=== PATIENT | male | born 1950 | race Caucasian/White ===

== ENCOUNTER → 2019-10-12 08:36 | Outpatient (CLI) | payer BC, SELFPAY ==
--- NOTE | ~2019-10-12 | XR_ITS ---
EXAMINATION: XR knee LT 2V DATE: 10/12/2019 08:55 INDICATION: Unspecified osteoarthritis, unspecified site. TECHNIQUE: 2 views of left knee were obtained. COMPARISON: None. FINDINGS: Bone alignment is normal. No fracture. There is mild tricompartmental osteoarthritis. No kn ee joint effusion. IMPRESSION: 1. Mild left knee osteoarthritis. Reviewed, dictated and finalized at location A.
== END ==
PROVIDERS: PCP Internal Medicine; Visit Provider Internal Medicine
DX: M17.12 Unilateral primary osteoarthritis, left knee (principal)
CPT/HCPCS: 73560

== ENCOUNTER 2019-12-08 01:35 | Outpatient (CLI) | payer BC, SELFPAY ==
[2019-12-08 22:13] LABS: SARS-CoV-2 RNA PCR Negative
== END 2019-12-08 01:36 | disposition home or self-care (01) ==
LOC: ANHCOVIDDT 01:35
PROVIDERS: PCP Internal Medicine; Visit Provider Internal Medicine Gastroenterology
DX: Z01.812 Encounter for preprocedural laboratory examination (principal); Z20.828 Contact with and (suspected) exposure to other viral communicable diseases
CPT/HCPCS: 87635; C9803; U0003

== ENCOUNTER 2019-12-11 00:13 | Day surgery (SDC) | payer BC, SELFPAY ==
[2019-12-05 08:27] VITALS: BMI 28.0
--- NOTE | 2019-12-10 14:36 | WPDANESEPPF ---
Anes - Initial Pre Proc Eval Procedure: Operation Date: 12/11/19 08:30 Proposed Procedures p Screening Colonoscopy - Camilo Kern MD Date/Time: 12/10/19 14:36 Surgeon: Camilo Kern MD Pre Op Diagnosis: neoplasm Screening Patient Data Age: 69 Gender: M Height: 1.98 m Weight: 110 kg Allergies Allergy/AdvReac Type Severity Reaction Status Date / Time Penicillins Allergy Severe Swelling Verified 12/11/19 07:43 of Lip/Tongue/Throat Home Medications Medication Instructions Recorded Confirmed Type gemfibrozil 600 mg tablet 600 mg PO BID 03/30/19 12/05/19 History omeprazole 20 mg capsule,delayed 20 mg PO BID PRN 03/30/19 12/05/19 History release alfuzosin 10 mg tablet,extended 10 mg PO DAILY 04/02/19 12/05/19 History release 24 hr multivitamin 1 tablet PO DAILY 04/02/19 12/05/19 History metoprolol succinate 25 mg See Rx Instructions .ROUTE 08/14/19 12/05/19 Rx tablet,extended release 24 hr .COMPLEX #90 tablet gabapentin 300 mg capsule 300 mg PO DAILY #90 cap 10/25/19 12/05/19 Rx peg 3350-electrolytes 236 240 ml PO Q10M #4000 ml 10/26/19 Rx gram-22.74 gram-6.74 gram-5.86 gram solution levothyroxine 175 mcg tablet 175 mcg PO DAILY #180 tablet 10/31/19 12/05/19 Rx sertraline 50 mg tablet See Rx Instructions .ROUTE 11/19/19 12/05/19 Rx .COMPLEX #90 tablet cyanocobalamin (vitamin B-12) 1,000 mcg PO DAILY 12/05/19 12/05/19 History Patient hx anesthesia problems: none Family hx anesthesia problems: none PMFSH Past Medical History Medical History (Updated 12/10/19 @ 14:37 by David Jackson MD) Anxiety Benign prostatic hyperplasia without lower urinary tract symptoms Chronic low back pain Detached retina, right Essential (primary) hypertension History of kidney stones Hx of thyroid cancer Melanoma Mixed hyperlipidemia Osteoarthritis Postoperative hypothyroidism Family History Family History (Updated 10/04/13 @ 07:13 by DOCTOR UNKNOWN) Sibling Carcinoma of colon Mother Family history of congestive heart failure Social History Social History Smoking status: Never smoker Alcohol intake: never Substance use: never Substance use type: does not use Spiritual care concerns: No Anes - Eval Final PreProcedure Day of Procedure 12/10/19 14:36 Patient weight: obese Heart: regular rate and rhythm Lungs: clear to auscultation and normal air movement Airway: Mallampati scale class II Neurological: alert and oriented Last oral intake: >/= 8 hours ASA classification: III Emergent: no Anesthetic plan: proceed Anesthesia type and monitoring: general GIVS Informed Consent: The patient's anesthetic plan and its attendant risks and benefits were discussed with the patient/family/POA. Questions were solicited and answers provided to the satisfaction of the patient/family/POA.
[2019-12-11 07:45] VITALS: BP 144/77; PULSE 89; RESP 22; TEMP 37.1; O2SAT 98; BMI 27.8
[2019-12-11] MEDS: LACTATED RINGERS 1,000 ML 150 ML IV CONT (07:52)
--- NOTE | 2019-12-11 08:47 | PM.HPGS ---
History of Present Illness History of Present Illness Consent: Risks, benefits, and alternatives have been discussed and questions answered. Patient agrees to proceed with procedure. Chief complaint: neoplasm Screening Narrative: Micha Robles is a 69 year old male with colon polyps 2017 but also strong family history of colon cancer (sister, father and grandparent) Review of Systems Constitutional: Constitutional: Denies headache(s) and Denies weakness Eyes: Eyes: Denies blurry vision ENT: Reports Normal hearing present, Denies headache(s) and Denies neck pain Cardiovascular: Cardiovascular: Denies chest pain and Denies dyspnea Respiratory: Respiratory: Denies dyspnea Gastrointestinal: Gastrointestinal: Reports no additional gastrointestinal complaints Genitourinary: Genitourinary: Denies dysuria Musculoskeletal: Musculoskeletal: Denies neck pain Integumentary/Breasts: Skin/Breast: Denies dry skin Neurologic: Reports Normal hearing present, Denies headache(s) and Denies weakness Psychiatric: Psychiatric: Denies anxiety Endocrine: Endocrine: Denies change in body appearance Hematologic/Lymphatic: Hematologic/Lymphatic: Denies easy bleeding Allergic/Immunologic: Allergic/Immunologic: Denies urticaria PMFSH Past Medical History Medical History (Updated 12/10/19 @ 14:37 by David Jackson MD) Anxiety Benign prostatic hyperplasia without lower urinary tract symptoms Chronic low back pain Detached retina, right Essential (primary) hypertension History of kidney stones Hx of thyroid cancer Melanoma Mixed hyperlipidemia Osteoarthritis Postoperative hypothyroidism Family History Family History (Updated 10/04/13 @ 07:13 by DOCTOR UNKNOWN) Sibling Carcinoma of colon Mother Family history of congestive heart failure Social History Social History Smoking status: Never smoker Alcohol intake: never Substance use: never Substance use type: does not use Spiritual care concerns: No Meds Home Medications and Allergies Home Medications Medication Instructions Recorded Confirmed Type gemfibrozil 600 mg tablet 600 mg PO BID 03/30/19 12/05/19 History omeprazole 20 mg capsule,delayed 20 mg PO BID PRN 03/30/19 12/05/19 History release alfuzosin 10 mg tablet,extended 10 mg PO DAILY 04/02/19 12/05/19 History release 24 hr multivitamin 1 tablet PO DAILY 04/02/19 12/05/19 History metoprolol succinate 25 mg See Rx Instructions .ROUTE 08/14/19 12/05/19 Rx tablet,extended release 24 hr .COMPLEX #90 tablet gabapentin 300 mg capsule 300 mg PO DAILY #90 cap 10/25/19 12/05/19 Rx peg 3350-electrolytes 236 240 ml PO Q10M #4000 ml 10/26/19 Rx gram-22.74 gram-6.74 gram-5.86 gram solution levothyroxine 175 mcg tablet 175 mcg PO DAILY #180 tablet 10/31/19 12/05/19 Rx sertraline 50 mg tablet See Rx Instructions .ROUTE 11/19/19 12/05/19 Rx .COMPLEX #90 tablet cyanocobalamin (vitamin B-12) 1,000 mcg PO DAILY 12/05/19 12/05/19 History Allergies Allergy/AdvReac Type Severity Reaction Status Date / Time Penicillins Allergy Severe Swelling Verified 12/11/19 07:43 of Lip/Tongue/Throat Vital Signs Vital Signs - 24 hr 12/11/19 07:45 Temperature 98.7 F Pulse Rate 89 Respiratory Rate 22 H Blood Pressure 144/77 H Pulse Oximetry 98 Exam Const: General: comfortable and no acute distress HENMT: General nose exam: Normal nares present Eyes: General: appearance normal, both eyes and all related structures Neck: Neck: no JVD Resp: Auscultation: clear to auscultation bilaterally Cardio: Rate: regular rate Rhythm: regular rhythm GI: Inspection: non-distended GI Palp: Yes Soft to palpation Skin: General skin exam: normal color Neuro: General: gait normal Speech: normal speech Extrem: General: normal to inspection Psych: Mental Status: mental status grossly normal Assessment and Plan Assessment and plan (1) FHx: colon cancer: Code(s
[2019-12-11 09:13] VITALS: BP 114/75; PULSE 72; RESP 16; O2SAT 99
[2019-12-11 09:23] VITALS: BP 116/76; PULSE 76; RESP 20; O2SAT 99
[2019-12-11 09:33] VITALS: BP 127/82; RESP 21; O2SAT 99
== END 2019-12-11 09:53 | disposition home or self-care (01) ==
PROVIDERS: PCP Internal Medicine; Visit Provider Internal Medicine Gastroenterology
PROC: 0DJD8ZZ Inspection of Lower Intestinal Tract, Via Natural or Artificial Opening Endoscopic (ICD-10-PCS; CPT 45378; principal; 2019-12-11 08:30)
DX: Z12.11 Encounter for screening for malignant neoplasm of colon (principal); D12.0 Benign neoplasm of cecum; K63.5 Polyp of colon; K57.30 Diverticulosis of large intestine without perforation or abscess without bleeding; Z80.0 Family history of malignant neoplasm of digestive organs; E78.2 Mixed hyperlipidemia; E89.0 Postprocedural hypothyroidism; N40.0 Benign prostatic hyperplasia without lower urinary tract symptoms; F41.9 Anxiety disorder, unspecified; Z85.850 Personal history of malignant neoplasm of thyroid; E66.9 Obesity, unspecified
CPT/HCPCS: 45385; 45380; 88305; J2704; J7120

== ENCOUNTER → 2020-04-07 09:32 | Outpatient (REF) | payer MEDICARE, BC, SELFPAY | LOC: ANHLAB 09:32 | PROVIDERS: PCP Internal Medicine; Visit Provider Nurse Practitioner | DX: C44.712 Basal cell carcinoma of skin of right lower limb, including hip (principal) | CPT/HCPCS: 88305; 88331 ==

== ENCOUNTER → 2020-04-10 12:01 | Outpatient (CLI) | payer MEDICARE, BC, SELFPAY ==
[2020-04-11 13:21] LABS: SARS-CoV-2 RNA PCR Positive
== END ==
PROVIDERS: PCP Internal Medicine; Visit Provider Internal Medicine
DX: U07.1 COVID-19 (principal)
CPT/HCPCS: C9803; U0003; U0005

== ENCOUNTER 2020-05-16 11:40 | Outpatient (CLI) | payer MEDICARE, BC, SELFPAY ==
--- NOTE | 2020-05-16 12:06 | ECG_ITS ---
Measurements Intervals [place] Rate: 78 P: 54 VA: 156 QRS: -7 QRSD: 88 T: 18 QT: 377 QTc: 431 Interpretive Statements SINUS RHYTHM NORMAL ECG Electronically Signed On 05-16-2020 12:51:56 CDT by Otis Mccann D.O.
== END 2020-05-16 11:41 | disposition home or self-care (01) ==
PROVIDERS: PCP Internal Medicine; Visit Provider Internal Medicine
DX: I10 Essential (primary) hypertension (principal)
CPT/HCPCS: 93005

== ENCOUNTER → 2020-08-29 11:26 | Outpatient (CLI) | payer MEDICARE, SELFPAY ==
--- NOTE | ~2020-08-29 | CT_ITS ---
EXAMINATION: CT abdomen pelvis wo con DATE: 08/29/2020 11:45 INDICATION: Gross hematuria, right flank pain TECHNIQUE: Computed tomography (CT) of the abdomen and pelvis was performed without intravenous contr ast. The dose-length product (DLP) was 849.67 mGy-cm. Automated exposure control and iterative recons truction technique were employed. COMPARISON: 03/10/2018 FINDINGS: Minimal dependent atelectasis is present in the lung bases. The heart size is normal. Punct ate calcifications in otherwise normal appearing liver and spleen likely represent healed granulomato us disease. The pancreas, gallbladder, and right adrenal gland are normal. There is a 1.6 cm adenoma of the left adrenal gland. Cysts of the kidneys measure up to 10.0 cm on the left. No stones are iden tified in the kidneys, ureters, or bladder. There is no hydronephrosis or hydroureter. There is marke d enlargement of the prostate. No pathologically enlarged abdominal or pelvic lymph nodes are identif ied. There is no free intraperitoneal gas or evidence of bowel obstruction. There is questionable thi ckening of the left posterolateral bladder wall. There is severe lumbar spondylosis. IMPRESSION: 1. Possible thickening of the left posterolateral bladder wall near the ureteral insertion. Consider direct visualization. 2. Prostatomegaly. Reviewed, dictated and finalized at location B. IMPRESSION: 1. Possible thickening of the left posterolateral bladder wall near the uretera l insertion. Consider direct visualization. 2. Prostatomegaly.
== END ==
PROVIDERS: PCP Internal Medicine; Visit Provider Urology
DX: R31.0 Gross hematuria (principal); N40.0 Benign prostatic hyperplasia without lower urinary tract symptoms
CPT/HCPCS: 74176

== ENCOUNTER 2020-09-25 13:59 | Emergency (ER) | payer MEDICARE, BC, SELFPAY ==
--- NOTE | ~2020-09-25 | XR_ITS ---
EXAMINATION: XR chest 2V 09/25/2020 14:32 INDICATION: Chest pressure PROCEDURE: 2 view chest COMPARISON: No prior studies for comparison. FINDINGS: The lungs are clear. The cardiomediastinal silhouette is within normal limits. There are no pleural effusions. There is no pneumothorax suspected. IMPRESSION: 1: NO ACUTE CARDIOPULMONARY DISEASE. Reviewed, dictated and finalized at location A.
[2020-09-25 14:10] VITALS: BP 145/92; PULSE 135; RESP 20; TEMP 35.9; O2SAT 99
--- NOTE | 2020-09-25 14:13 | ECG_ITS ---
Measurements Intervals [place] Rate: 134 P: CO: 0 QRS: 1 QRSD: 79 T: 24 QT: 375 QTc: 562 Interpretive Statements ATRIAL FLUTTER/TACHYCARDIA WITH RAPID VENTRICULAR RESPONSE DELAYED PRECORDIAL R/S TRANSITION ABNORMAL ECG Electronically Signed On 09-25-2020 14:29:52 CDT by Otis Mccann D.O.
--- NOTE | 2020-09-25 14:27 | PC.NURSE ---
DO NOT KNOW THE DR WHO THE EKG WAS GIVEN TO YEISON TOOK IT TO WHILE I DID HIS LABS
[2020-09-25 14:34] LABS: Basophils Absolute Auto 0.1 K/mm3 (0.0-0.1); Basophils Percent Auto 0.9 % (0.2-1.2); Eosinophils Absolute Auto 0.1 K/mm3 (0-0.3); Eosinophils Percent Auto 1.9 % (0-4.4); Hematocrit 44.7 % (42.0-52.0); Immature Granulocyte Absolute 0.01 K/mm3 (0.00-0.031); Immature Granulocyte Percent A 0.2 % (0-0.5); Lymphocytes Absolute Auto 1.42 K/mm3 (0.9-3.2); Lymphocytes Percent Auto 24.9 % (18.3-44.2); Mean Corpuscular HGB Conc 33.6 g/dl (32-36); Mean Corpuscular Hemoglobin 31.1 pg (26-34); Mean Corpuscular Volume 92.7 fl (80-100); Mean Platelet Volume 11.5 fl (7.4-10.4); Monocytes Absolute Auto 0.5 K/mm3 (0.1-0.6); Monocytes Percent Auto 8.8 % (2.6-8.5); Neutrophils Absolute Auto 3.6 K/mm3 (1.3-6.7); Neutrophils Percent Auto 63.3 % (45.5-73.1); Platelet Count Result 174 k/mm3 (150-375); Red Blood Count 4.82 M/mm3 (4.6-6.20); Red Cell Distribution Width 12.1 % (11.5-14.5); White Blood Count 5.7 K/mm3 (4.5-10.0)
[2020-09-25 14:44] LABS: INR 0.9; Prothrombin Time 12.4 Seconds (11.1-14.7)
[2020-09-25 14:45] LABS: Partial Thromboplastin Time 27.6 SECONDS (22.3-36.8)
[2020-09-25 14:49] LABS: Anion Gap 9 mmol/L (8-16); Blood Urea Nitrogen 22 mg/dL (9-20); Calcium 8.9 mg/dL (8.4-10.2); Carbon Dioxide 24 mmol/L (22-30); Chloride 110 mmol/L (98-107); Estimated CRCL calculation 74 ml/min; Estimated Glomerular Filt Rate > 60; Glucose 117 mg/dL (65-110); Potassium 3.9 mmol/L (3.4-5.0); Sodium 143 mmol/L (137-145)
[2020-09-25 15:01] LABS: Troponin I < 0.012 ng/mL (0.000-0.034)
[2020-09-25] MEDS: dilTIAZem HCl INJ 25 MG/5 ML VIAL 20 MG IV PUSH (16:28)
[2020-09-25] MEDS: ASPIRIN 81 MG CHEWABLE TABLET 324 MG PO (16:30)
--- NOTE | 2020-09-25 16:39 | ECG_ITS ---
Measurements Intervals [place] Rate: 70 P: ID: 0 QRS: -2 QRSD: 84 T: 11 QT: 370 QTc: 400 Interpretive Statements ATRIAL FLUTTER/TACHYCARDIA ABNORMAL ECG Electronically Signed On 09-26-2020 6:06:57 CDT by Otis Mccann D.O.
[2020-09-25 17:28] VITALS: BP 109/73; PULSE 64; RESP 18; O2SAT 94
--- NOTE | 2020-09-25 18:12 | PC.NURSE ---
Talked to Noman in lab at 17:55 to add on but matt anyways
--- NOTE | 2020-09-25 18:13 | ED.ARRPALP ---
HPI - Arrhythmia/Palpitations General Chief Complaint: Chest Pain Stated Complaint: heat exhaustion Time Seen by Provider: 09/25/20 14:38 Source: patient Mode of arrival: ambulatory Limitations: no limitations History of Present Illness HPI narrative: 70-year-old male Here for possible heat exhaustion Patient notes that he spent the morning on Tuesday doing yard work and housework outside and became overheated Says that since then he has persistently been fatigued and felt very hot and that his complains he is turning her into an icicle with the air conditioning He is not having shortness of breath and is not aware of his heart racing or skipping He has a little bit of chest tightness which is continuous He does not have a fever cough, nausea or vomiting, urinary symptoms, muscle aches It sounds like he called his primary care office about an appointment today and at some point they determined he was pretty tachycardic which he had not been aware of and referred him to the ED for evaluation Patient does note that when he used to see Dr. Rebolledo he had some irregular heartbeats but is not familiar with ever having been told he had A. fib or a flutter He also notes he is under a lot of stress due to mostly settling his mom's estate and that he very much does not want to be admitted to the hospital Related Data Home Medications Medication Instructions Recorded Confirmed alfuzosin 10 mg tablet,extended 10 mg PO DAILY 04/02/19 05/15/20 release 24 hr multivitamin 1 tablet PO DAILY 04/02/19 05/15/20 cyanocobalamin (vitamin B-12) 1,000 mcg PO DAILY 12/05/19 05/15/20 Allergies Allergy/AdvReac Type Severity Reaction Status Date / Time Penicillins Allergy Severe Swelling Verified 05/15/20 10:28 of Lip/Tongue/Throat Review of Systems Review of Systems: All systems reviewed & are unremarkable except as noted in HPI and below Constitutional: Constitutional: Reports no additional constitutional complaints, Denies chills, Reports fatigue, Denies fever(s), Denies headache(s) and Reports weakness Eyes: Eyes: Reports no additional eye complaints and Denies change in vision ENT: Denies headache(s) and Denies sore throat Cardiovascular: Cardiovascular: Reports chest pain, Reports rapid heart rate, Denies radiating jaw, neck or arm pain and Denies dyspnea Respiratory: Respiratory: Denies cough and Denies dyspnea Gastrointestinal: Gastrointestinal: Denies abdominal pain, Denies diarrhea, Denies nausea and Denies vomiting Genitourinary: Genitourinary: Denies dysuria and Denies urinary frequency Musculoskeletal: Musculoskeletal: Reports myalgias, Denies deformity, Denies arthralgias, Denies joint swelling and Denies numbness Integumentary/Breasts: Skin/Breast: Denies rash and Denies wounds Neurologic: Denies headache(s), Denies focal weakness and Denies numbness Psychiatric: Psychiatric: Reports no additional psychiatric complaints Endocrine: Endocrine: Reports no additional endocrine complaints Comments: Feels hot Hematologic/Lymphatic: Hematologic/Lymphatic: Reports no additional hematologic/lymphatic complaints Allergic/Immunologic: Allergic/Immunologic: Reports no additional allergic/immunologic complaints [facility] Past Medical History Medical History (Updated 09/25/20 @ 18:56 by Shahzad Pacheco MD) Anxiety Benign prostatic hyperplasia without lower urinary tract symptoms Chronic low back pain Detached retina, right Essential (primary) hypertension History of kidney stones Hx of thyroid cancer Melanoma Mixed hyperlipidemia Osteoarthritis Postoperative hypothyroidism Surgical History Surgical History (Updated 04/07/20 @ 09:25 by Laura Jacob) History of elbow surgery History of neck surgery History of rotator cuff surgery History of thyroid surgery Family History Family History (Updated 04/07/20 @ 09:26 by Laura Jacob) Sibling Carcinoma of colon Mother Family history of
[2020-09-25 18:29] VITALS: PULSE 63
[2020-09-25] MEDS: METOPROLOL TARTRATE 50 MG TAB PO (18:29)
[2020-09-25] MEDS: RIVAROXABAN 20 MG TABLET PO (18:29)
[2020-09-25 18:36] LABS: Troponin I < 0.012 ng/mL (0.000-0.034)
[2020-09-25 20:20] LABS: Free T4 Free Thyroxine 1.85 ng/mL (0.78-2.19)
[2020-09-25 20:36] LABS: Thyroid Stimulating Hormone Reflex < 0.015 uIU/mL (0.465-4.68)
== END 2020-09-25 19:15 | disposition home or self-care (01) ==
PROVIDERS: Emergency Medicine; Emergency Provider Emergency Medicine; PCP Internal Medicine
DX: I48.92 Unspecified atrial flutter (principal); N40.0 Benign prostatic hyperplasia without lower urinary tract symptoms; I10 Essential (primary) hypertension; E78.2 Mixed hyperlipidemia; M19.90 Unspecified osteoarthritis, unspecified site; E89.0 Postprocedural hypothyroidism; Z85.850 Personal history of malignant neoplasm of thyroid; Z85.820 Personal history of malignant melanoma of skin; Z87.442 Personal history of urinary calculi; R07.89 Other chest pain
CPT/HCPCS: 36415; 71046; 80048; 84439; 84443; 84484; 85025; 85610; 85730; 93005; 96374; 99284; A9270

== ENCOUNTER 2020-10-10 09:06 | Outpatient (CLI) | payer MEDICARE, BC, SELFPAY ==
--- NOTE | 2020-10-10 09:05 | ECG_ITS ---
Measurements Intervals [place] Rate: 62 P: 58 MN: 151 QRS: -1 QRSD: 97 T: 30 QT: 396 QTc: 404 Interpretive Statements SINUS RHYTHM FREQUENT ATRIAL PREMATURE COMPLEXES INCOMPLETE RIGHT BUNDLE BRANCH BLOCK BASELINE ARTIFACT- II, III, AVF ABNORMAL ECG Electronically Signed On 10-10-2020 9:59:45 CDT by Otis Mccann D.O.
--- NOTE | 2020-10-10 09:05 | ECHO_ITS ---
Patient Info Name: Micha Robles Age: 70 years : 1950 Gender: Male Ht: 78 in Wt: 235 lbs BSA: 2.43 m2 HR: 63 bpm BP: 138 / 78 mmHg Heart Rhythm: Atrial Flutter, Sinus Rhythm Technical Quality: Fair Exam Date: 10/10/2020 9:22 AM Exam Location: [facility] Pulmonary Patient Status: Outpatient Admit Date: 10/10/2020 Staff Ordering Physician: Manjinder Monge MD Tucking Machine Operator: Carlota Winters RDCS Attending Provider: Manjinder Monge MD Exam Type: CA echo doppler color flow Study Info Indications I48.92 - ATRIAL FLUTTER Complete two-dimensional, color flow and Doppler transthoracic echocardiogram is performed. Summary 1. Complete two-dimensional, color flow and Doppler transthoracic echocardiogram is performed. 2. Left ventricular chamber dimension is normal. 3. Left ventricular systolic function is normal, estimated at 55-60%. 4. There is mildly increased left ventricular wall thickness. 5. The left ventricular diastolic function is grade I diastolic dysfunction. 6. E/e' 10 is mildly elevated. 7. Left atrial chamber dimension is moderately enlarged. 8. Right atrial chamber dimension is moderately enlarged. 9. There is mild aortic valve sclerosis. 10. There is mild aortic valve regurgitation. 11. There is trace tricuspid valve regurgitation. 12. No pulmonary hypertension, estimated pulmonary arterial systolic pressure is 29 mmHg. 13. There is trace pulmonic regurgitation. 14. The aortic root size at the sinus of Valsalva is moderately dilated at 4.5 cm. Left Ventricle E/e' 10 is mildly elevated. Left ventricular chamber dimension is normal. Left ventricular systolic function is normal, estimated at 55-60%. There is mildly increased left ventricular wall thickness. The left ventricular diastolic function is grade I diastolic dysfunction. Right Ventricle Right ventricular chamber dimension is normal. Right ventricular systolic function is normal. Left Atria Left atrial chamber dimension is moderately enlarged. Right Atria Right atrial chamber dimension is moderately enlarged. Aortic Valve The aortic valve is trileaflet. There is mild aortic valve sclerosis. There is no aortic valve stenosis. There is mild aortic valve regurgitation. Pulmonic Valve There is trace pulmonic regurgitation. Mitral Valve There is no mitral valve stenosis. There is no mitral valve regurgitation. Tricuspid Valve There is trace tricuspid valve regurgitation. No pulmonary hypertension, estimated pulmonary arterial systolic pressure is 29 mmHg. Pericardium/Pleural There is no pericardial effusion. Inferior Vena Cava Inferior vena cava is not well visualized. Aorta The aortic root size at the sinus of Valsalva is moderately dilated at 4.5 cm. Left Ventricular Outflow Tract Name Value Normal LVOT 2D LVOT Diameter 2.3 cm LVOT Doppler LVOT Peak Gradient 6 mmHg LVOT Mean Gradient 3 mmHg LVOT VTI 30 cm LVOT VTI/AV VTI Ratio 1.0 LVOT Stroke Volume 124 m
== END 2020-10-10 09:07 | disposition home or self-care (01) ==
PROVIDERS: PCP Internal Medicine; Visit Provider Internal Medicine
DX: I48.92 Unspecified atrial flutter (principal); I45.10 Unspecified right bundle-branch block; I49.1 Atrial premature depolarization
CPT/HCPCS: 93005; 93306

== ENCOUNTER 2023-05-18 01:52 | Day surgery (SDC) | payer MEDICARE, SELFPAY ==
--- NOTE | 2023-05-12 09:32 | PC.NURSE ---
Cardiac clearance and requests for office notes sent to Dr. Wright, Dr. Monge, and Dr. Chapman.
[2023-05-12 10:14] VITALS: BMI 28.0
--- NOTE | 2023-05-12 10:22 | PC.NURSE ---
Pt taken off of xarelto on 03/13/[address] Wright.
[2023-05-18 07:39] VITALS: BP 117/56; PULSE 87; RESP 20; TEMP 36.3; O2SAT 100; BMI 26.9
[2023-05-18] MEDS: LACTATED RINGERS 1,000 ML 150 ML IV CONT (07:51)
--- NOTE | 2023-05-18 08:11 | WPDANESEPPF ---
Anes - Initial Pre Proc Eval Procedure: Operation Date: 05/18/23 09:00 Proposed Procedures p Colonoscopy - Camilo Kern MD Date/Time: 05/18/23 08:11 Surgeon: Camilo Kern MD Pre Op Diagnosis: hx colon polyps, fam hx colon ca Patient Data Age: 72 Gender: M Height: 1.98 m Weight: 105.6 kg Last Vital Signs Temp 97.3 F L 05/18/23 07:39 Pulse 87 05/18/23 07:39 Resp 20 05/18/23 07:39 BP 117/56 L 05/18/23 07:39 Pulse Ox 100 05/18/23 07:39 O2 Del Method Room Air 05/18/23 07:39 Allergies Allergy/AdvReac Type Severity Reaction Status Date / Time Penicillins Allergy Severe Swelling Verified 05/18/23 07:38 of Lip/Tongue/Throat zepeda butter Allergy Severe Redness of Uncoded 05/18/23 07:38 Skin Home Medications Medication Instructions Recorded Confirmed Type multivitamin 1 tablet PO DAILY 04/02/19 05/12/23 History cyanocobalamin (vitamin B-12) 1,000 mcg PO DAILY 12/05/19 05/12/23 History 1,000 mcg tablet levothyroxine 175 mcg tablet 175 mcg PO DAILY #180 tabs 07/04/20 05/12/23 Rx (Synthroid) gemfibrozil 600 mg tablet 600 mg PO BID #180 tabs 10/16/21 05/12/23 Rx alfuzosin 10 mg tablet,extended 10 mg PO BID 12/20/22 05/12/23 History release 24 hr allopurinol 300 mg tablet 300 mg PO DAILY 12/20/22 05/12/23 History finasteride 5 mg tablet 5 mg PO DAILY 12/20/22 05/12/23 History metoprolol tartrate 25 mg tablet 12.5 mg PO DAILY 12/20/22 05/12/23 History omeprazole 20 mg capsule,delayed 20 mg PO DAILY 12/20/22 05/12/23 History release sertraline 50 mg tablet 50 mg PO DAILY 12/20/22 05/12/23 History Results Review: All pre-operative results and documents have been reviewed as part of the pre-operative evaluation. [facility] Past Medical History Medical History Anxiety Benign prostatic hyperplasia without lower urinary tract symptoms Chronic low back pain Detached retina, right Essential (primary) hypertension History of kidney stones Hx of thyroid cancer Melanoma Mixed hyperlipidemia Osteoarthritis Postoperative hypothyroidism Surgical History Surgical History History of elbow surgery History of neck surgery History of rotator cuff surgery History of thyroid surgery Family History Family History Sibling Carcinoma of colon Mother Family history of congestive heart failure Father Colon cancer Social History Social History Smoking status: Never smoker Second hand tobacco smoke exposure: No Alcohol intake: never Substance use: never Substance use type: does not use Living arrangements: with family Spiritual care concerns: No Anes - Eval Final PreProcedure Day of Procedure 05/18/23 08:11 Results Review: All pre-operative results and documents have been reviewed as part of the pre-operative evaluation. Informed Consent: The patient's anesthetic plan and its attendant risks and benefits were discussed with the patient/family/POA. Questions were solicited and answers provided to the satisfaction of the patient/family/POA.
--- NOTE | 2023-05-18 08:17 | WPDANESEPPF ---
Anes - Initial Pre Proc Eval Procedure: Operation Date: 05/18/23 09:00 Proposed Procedures p Colonoscopy - Camilo Kern MD Date/Time: 05/18/23 08:17 Surgeon: Camilo Kern MD Pre Op Diagnosis: hx colon polyps, fam hx colon ca Patient Data Age: 72 Gender: M Height: 1.98 m Weight: 105.6 kg Last Vital Signs Temp 97.3 F L 05/18/23 07:39 Pulse 87 05/18/23 07:39 Resp 20 05/18/23 07:39 BP 117/56 L 05/18/23 07:39 Pulse Ox 100 05/18/23 07:39 O2 Del Method Room Air 05/18/23 07:39 Allergies Allergy/AdvReac Type Severity Reaction Status Date / Time Penicillins Allergy Severe Swelling Verified 05/18/23 07:38 of Lip/Tongue/Throat zepeda butter Allergy Severe Redness of Uncoded 05/18/23 07:38 Skin Home Medications Medication Instructions Recorded Confirmed Type multivitamin 1 tablet PO DAILY 04/02/19 05/12/23 History cyanocobalamin (vitamin B-12) 1,000 mcg PO DAILY 12/05/19 05/12/23 History 1,000 mcg tablet levothyroxine 175 mcg tablet 175 mcg PO DAILY #180 tabs 07/04/20 05/12/23 Rx (Synthroid) gemfibrozil 600 mg tablet 600 mg PO BID #180 tabs 10/16/21 05/12/23 Rx alfuzosin 10 mg tablet,extended 10 mg PO BID 12/20/22 05/12/23 History release 24 hr allopurinol 300 mg tablet 300 mg PO DAILY 12/20/22 05/12/23 History finasteride 5 mg tablet 5 mg PO DAILY 12/20/22 05/12/23 History metoprolol tartrate 25 mg tablet 12.5 mg PO DAILY 12/20/22 05/12/23 History omeprazole 20 mg capsule,delayed 20 mg PO DAILY 12/20/22 05/12/23 History release sertraline 50 mg tablet 50 mg PO DAILY 12/20/22 05/12/23 History Patient hx anesthesia problems: other (Pt reports GA w difficulty waking up, then PONV. GI anesthesia has gone well in the past. ) Family hx anesthesia problems: none Results Review: All pre-operative results and documents have been reviewed as part of the pre-operative evaluation. [facility]END[facility] SALE TO [facility] Past Medical History Medical History Anxiety Benign prostatic hyperplasia without lower urinary tract symptoms Chronic low back pain Detached retina, right Essential (primary) hypertension History of kidney stones Hx of thyroid cancer Melanoma Mixed hyperlipidemia Osteoarthritis Postoperative hypothyroidism Surgical History Surgical History History of elbow surgery History of neck surgery History of rotator cuff surgery History of thyroid surgery Family History Family History Sibling Carcinoma of colon Mother Family history of congestive heart failure Father Colon cancer Social History Social History Smoking status: Never smoker Second hand tobacco smoke exposure: No Alcohol intake: never Substance use: never Substance use type: does not use Living arrangements: with family Spiritual care concerns: No Anes - Eval Final PreProcedure Day of Procedure 05/18/23 08:17 Patient weight: normal Heart: regular rate and rhythm Lungs: clear to auscultation Airway: Mallampati scale class II Neurological: alert and oriented Last oral intake: >/= 8 hours ASA classification: III Emergent: no Anesthetic plan: proceed Anesthesia type and monitoring: general GIVS and standard monitoring Other findings: S/p ablation 2022 x 2 w success. Results Review: All pre-operative results and documents have been reviewed as part of the pre-operative evaluation. Informed Consent: The patient's anesthetic plan and its attendant risks and benefits were discussed with the patient/family/POA. Questions were solicited and answers provided to the satisfaction of the patient/family/POA.
--- NOTE | 2023-05-18 08:38 | PM.HPGS ---
History of Present Illness History of Present Illness Consent: Risks, benefits, and alternatives have been discussed and questions answered. Patient agrees to proceed with procedure. Chief complaint: hx colon polyps, fam hx colon ca Narrative: Micha Robles is a 72 year old male with colon polyp in 2019, family h/o CRC in sister and father Review of Systems Review of Systems: All systems reviewed & are unremarkable except as noted in HPI and below PMFSH Past Medical History Medical History Anxiety Benign prostatic hyperplasia without lower urinary tract symptoms Chronic low back pain Detached retina, right Essential (primary) hypertension History of kidney stones Hx of thyroid cancer Melanoma Mixed hyperlipidemia Osteoarthritis Postoperative hypothyroidism Surgical History Surgical History History of elbow surgery History of neck surgery History of rotator cuff surgery History of thyroid surgery Family History Family History Sibling Carcinoma of colon Mother Family history of congestive heart failure Father Colon cancer Social History Social History Smoking status: Never smoker Second hand tobacco smoke exposure: No Alcohol intake: never Substance use: never Substance use type: does not use Living arrangements: with family Spiritual care concerns: No Meds Home Medications and Allergies Home Medications Medication Instructions Recorded Confirmed Type multivitamin 1 tablet PO DAILY 04/02/19 05/12/23 History cyanocobalamin (vitamin B-12) 1,000 mcg PO DAILY 12/05/19 05/12/23 History 1,000 mcg tablet levothyroxine 175 mcg tablet 175 mcg PO DAILY #180 tabs 07/04/20 05/12/23 Rx (Synthroid) gemfibrozil 600 mg tablet 600 mg PO BID #180 tabs 10/16/21 05/12/23 Rx alfuzosin 10 mg tablet,extended 10 mg PO BID 12/20/22 05/12/23 History release 24 hr allopurinol 300 mg tablet 300 mg PO DAILY 12/20/22 05/12/23 History finasteride 5 mg tablet 5 mg PO DAILY 12/20/22 05/12/23 History metoprolol tartrate 25 mg tablet 12.5 mg PO DAILY 12/20/22 05/12/23 History omeprazole 20 mg capsule,delayed 20 mg PO DAILY 12/20/22 05/12/23 History release sertraline 50 mg tablet 50 mg PO DAILY 12/20/22 05/12/23 History Allergies Allergy/AdvReac Type Severity Reaction Status Date / Time Penicillins Allergy Severe Swelling Verified 05/18/23 07:38 of Lip/Tongue/Throat zepeda butter Allergy Severe Redness of Uncoded 05/18/23 07:38 Skin Vital Signs Vital Signs - 24 hr 05/18/23 07:39 Temperature 97.3 F L Pulse Rate 87 Respiratory Rate 20 Blood Pressure 117/56 L Pulse Oximetry 100 Oxygen Delivery Room Air Exam Const: General: comfortable and no acute distress HENMT: Face/Nose/Sinus: Normal nares present Eyes: General: appearance normal, both eyes and all related structures Neck: Neck: no JVD Resp: Auscultation: clear to auscultation bilaterally Cardio: Rate: regular rate Rhythm: regular rhythm GI: Inspection: non-distended GI Palp: Yes Soft to palpation Skin: General skin exam: normal color Neuro: General: gait normal Speech: normal speech Extrem: General: normal to inspection Psych: Mental Status: mental status grossly normal Assessment and Plan Assessment and plan (1) FHx: colon cancer: Code(s): Z80.0 - Family history of malignant neoplasm of digestive organs Status: Acute Assessment and Plan: colonoscopy (2) Hx of colonic polyps: Code(s): Z86.010 - Personal history of colonic polyps Status: Acute
[2023-05-18 09:00] VITALS: BP 123/74; PULSE 74; RESP 22; O2SAT 99
[2023-05-18 09:10] VITALS: BP 136/76; PULSE 68; RESP 18; O2SAT 100
[2023-05-18 09:20] VITALS: BP 135/71; PULSE 70; RESP 18; O2SAT 100
== END 2023-05-18 09:32 | disposition home or self-care (01) ==
PROVIDERS: PCP Family Medicine; Visit Provider Internal Medicine Gastroenterology
PROC: 0DJD8ZZ Inspection of Lower Intestinal Tract, Via Natural or Artificial Opening Endoscopic (ICD-10-PCS; CPT 45378; principal; 2023-05-18 09:00)
DX: Z12.11 Encounter for screening for malignant neoplasm of colon (principal); K57.30 Diverticulosis of large intestine without perforation or abscess without bleeding; K64.8 Other hemorrhoids; Z80.0 Family history of malignant neoplasm of digestive organs; I10 Essential (primary) hypertension; E78.2 Mixed hyperlipidemia; E89.0 Postprocedural hypothyroidism; N40.0 Benign prostatic hyperplasia without lower urinary tract symptoms; F41.9 Anxiety disorder, unspecified
CPT/HCPCS: G0105; J2704; J7120